=== PATIENT | female | born 1990 | race Caucasian/White ===

== ENCOUNTER 2020-08-07 08:17 | Emergency (ER) | payer OTHER, SELFPAY ==
[2020-08-07 08:25] VITALS: BP 139/83; PULSE 87; RESP 16; TEMP 36.8; O2SAT 98
--- NOTE | 2020-08-07 08:58 | ED.URI ---
HPI - URI/Sore Throat General Stated Complaint: congestion in head and ear Time Seen by Provider: 08/07/20 08:58 Source: patient Mode of arrival: ambulatory Limitations: no limitations History of Present Illness HPI Narrative: Patient presents with a 2-week history of sinus infection and pressure. Patient complains of a headache. Patient denies any loss of taste or smell patient denies any body aches and denies any increase in fatigue. Patient states she was tested for COVID-19 yesterday at [facility]. Patient states they did a rapid COVID-19 test which was negative and also did a backup COVID-19 test and has not heard results from that yet discussed with patient to continue quarantine at home until she receives a negative COVID-19 test. Patient denies any shortness of breath and no chest pain. Patient does not take anything [id number] other than Claritin for her symptoms. Related Data Home Medications Medication Instructions Recorded Confirmed linaclotide [Linzess] 145 mcg PO DAILY 08/07/20 08/07/20 Allergies Allergy/AdvReac Type Severity Reaction Status Date / Time No Known Allergies Allergy Verified 08/07/20 08:48 Review of Systems Review of Systems: Narrative: CONSTITUTIONAL: Denies chills, or sweats. Reports fever and generalized body aches EYES: Denies visual changes, redness, or discharge. ENT: Denies otalgia. Reports nasal congestion runny nose and sore throat CARDIOVASCULAR: Denies chest pain, palpitations, or edema. RESPIRATORY: Denies dyspnea. Reports occasional cough GASTROINTESTINAL: Denies abdominal pain, nausea, vomiting, or diarrhea. GENITOURINARY: Denies dysuria or hematuria. SKIN: Denies rash or itching. MUSCULOSKELETAL: Denies back pain, joint pain, or myalgia. Reports generalized body aches NEUROLOGIC: Denies headache, numbness, or weakness. PSYCHIATRIC: Denies anxiety or depression. PMFSH Comments At time of signature, agree with nursing past medical, surgical, social and family history. There is no relevant family history pertinent to the presenting complaint Exam Narrative: Exam Narrative: The patient is a well-developed, well-nourished in no acute distress. SKIN: Skin is warm and dry without erythema, swelling or exudate. There is good turgor. No tenting. HEAD: Atraumatic. Normocephalic. No temporal or scalp tenderness. EYES: Moist and bright. Sclera and conjunctivae normal. No discharge. PERRLA. Extraocular motions intact. Gross visual acuity intact. EARS: Pinna is normal shape and contour. Clear external auditory canals. TM pearly bunch with good cone of light, no erythema or suppuration. Bilateral cerumen noted no gross hearing deficit. Moderate amount of erythremia to right canal no loss of landmarks NOSE: pink, moist mucosa with good air movement. Clear rhinorrhea without nasal flaring. Septum midline. Moderate maxillary tenderness Mouth: moist mucous membranes. THROAT; mild erythema noted to posterior oropharynx with moderate postnasal drainage. Without exudate or ulceration.. Uvula midline. Normal movement of soft palate. NECK: Supple and nontender with full range of motion without discomfort. No meningeal signs. LUNGS: Equal and bilateral breath sounds without wheezes, rales or rhonchi. CHEST: The chest wall is without retractions or use of accessory muscles. HEART: Has a regular rate and rhythm without murmur, gallops, click or rub. ABDOMEN: Soft, nontender with positive active bowel sounds. No rebound tenderness. EXTREMITIES: Without cyanosis, clubbing or edema. Equal 2+ distal pulses and 2 second capillary refill noted. NEUROLOGIC: alert, active, . The patient moves all extremities with normal muscle strength. Normal muscle tone is noted. Normal coordination is noted. NO focal neurological findings noted. Course Vital Signs Vital signs: Vital Signs Temperature 36.8 C 08/07/20 08:25 Pulse Rate 87 08/07/20 08:25 Respiratory Rate 16 07/20
== END 2020-08-07 09:10 | disposition home or self-care (01) ==
PROVIDERS: Emergency Provider Nurse Practitioner Family
DX: J06.9 Acute upper respiratory infection, unspecified (principal); J32.9 Chronic sinusitis, unspecified
CPT/HCPCS: 99213; G0463

== ENCOUNTER → 2021-09-17 10:43 | Outpatient (CLI) | payer OTHER, SELFPAY ==
[2021-09-17 13:43] LABS: Influenza Control Positive
[2021-09-17 20:34] LABS: SARS-CoV-2 RNA PCR Positive
== END ==
PROVIDERS: PCP Family Medicine; Visit Provider Physician Assistant
DX: R50.9 Fever, unspecified (principal); U07.1 COVID-19
CPT/HCPCS: 87804; C9803; U0003; U0005

== ENCOUNTER 2022-09-29 08:50 | Outpatient (RCR) | payer OTHER, SELFPAY ==
[2022-09-29] MEDS: RHO(D) IMMUNE GLOBULIN 300 MCG/2 ML SYRINGE IM (14:15)
== END 2022-12-28 23:59 | disposition home or self-care (01) ==
LOC: ANHLAB 08:50
PROVIDERS: PCP Family Medicine; Visit Provider Advanced Practice Midwife
DX: Z29.13 Encounter for prophylactic Rho(D) immune globulin (principal); O36.0130 Maternal care for anti-D [Rh] antibodies, third trimester, not applicable or unspecified; Z3A.00 Weeks of gestation of pregnancy not specified
CPT/HCPCS: 36415; 85461; 86850; 86900; 86901; 90384; 96372; J2790

== ENCOUNTER 2022-12-14 07:44 | Inpatient (IN) | payer OTHER, SELFPAY ==
[2022-12-14] VITALS (11 sets, daily range): BP systolic 117–136; BP diastolic 65–84; PULSE 58–76; RESP 16–18; TEMP 36.4–37.3; O2SAT 99–100; BMI 25.9
[2022-12-14] MEDS: OXYTOCIN 30 UNITS/NS 500 ML 30 UNITS/500 ML BAG 999 UNITS IV CONT (08:26)
--- NOTE | 2022-12-14 08:33 | WPDOBADMIT ---
Obstetrics - Admit Note Admission Note: 32 y/o here in spontaneous labor. record reviewed. No pertinent additions to the history and/or any subsequent changes in the physical findings that are not consistent with the expected course of the were found. Additions to the history and/or subsequent changes in the physical findings follow. None.
--- NOTE | 2022-12-14 08:34 | PM.OBPRVD ---
OB - Delivery Note Procedure Delivery date: 12/14/22 Induction method: None Delivery monitor: External FHT and External Uterine Route of delivery: Episiotomy description: None Laceration Description: None Quantitative Blood Loss (ml): 212 Anesthesia type: None Baby Date of : 12/14/22 Time of : 08:18 Weeks of gestation at delivery: 39 presentation: vertex position: Left Occiput Anterior Placenta delivery description: Spontaneous Cord Vessel Description: 3 Vessels and Delayed Cord Clamping
[2022-12-14 08:52] LABS: Basophils Absolute Auto 0.1 K/mm3 (0.0-0.1); Basophils Percent Auto 0.7 % (0.2-1.2); Eosinophils Percent Auto 0.3 % (0-4.4); Hematocrit 39.8 % (37.0-47.0); Hemoglobin 13.7 g/dL (12.0-15.0); Immature Granulocyte Absolute 0.03 K/mm3 (0.00-0.031); Immature Granulocyte Percent A 0.3 % (0-0.5); Lymphocytes Absolute Auto 2.93 K/mm3 (0.9-3.2); Mean Corpuscular HGB Conc 34.4 g/dl (32-36); Mean Corpuscular Hemoglobin 30.2 pg (26-34); Mean Corpuscular Volume 87.9 fl (80-100); Mean Platelet Volume 11.3 fl (7.4-10.4); Monocytes Absolute Auto 0.7 K/mm3 (0.1-0.6); Monocytes Percent Auto 5.9 % (2.6-8.5); Neutrophils Percent Auto 67.8 % (45.5-73.1); Platelet Count Result 258 k/mm3 (150-375); Red Blood Count 4.53 M/mm3 (4.2-5.4); Red Cell Distribution Width 12.7 % (11.5-14.5); White Blood Count 11.7 K/mm3 (4.5-10.0)
[2022-12-14] MEDS: IBUPROFEN 600 MG TABLET PO (08:52)
[2022-12-14] MEDS: OXYTOCIN 30 UNITS/NS 500 ML 30 UNITS/500 ML BAG 125 UNITS IV CONT (08:55)
--- NOTE | 2022-12-14 10:10 | LDADM ---
This patient, Cheri Golden, was admitted to Labor/Delivery/Recovery 105 on 12/14/22 at 07:44. Plans for labor, pain management and were discussed with patient. Patient/family oriented to hospital policies and general routines including ID bracelet, bed and alarms, visiting hours, pain management, procedures, bathroom and other care routines, personal items, smoking policy, room service/diet and guest tray routines, security routines, and visiting hours. Patient/Family are encouraged to report perceived risks to care and to ask questions if they do not understand what they are told or what they should do. See OBIX for further documentation.
--- NOTE | 2022-12-14 10:47 | OBPPTRN ---
Patient transferred to post room # 283 via wheelchair. Support person present. Oriented to unit, room, information board, rooming in, admission packet and security measures. Patient verbalizes understanding.
[2022-12-14 13:28] LABS: Rapid Plasma Reagin Non-Reactive (NonReactive)
--- NOTE | 2022-12-14 15:46 | PC.NURSE ---
[id number] Introductions were made, then consulted with patient to assess needs related to . Mother led the conversation with her?plans to feed?her , the?experience so far and her history with her other children. Resources provided for inpatient and outpatient services with the feeding sheet, mom/baby guide, business card and name written on the white board. Mother voiced understanding of information and consented to reviewing what to expect the first 24-48 hours. Mother works well with her infant with encouragement and education. Encouraged understanding of the benefits of skin to skin (demonstrating unwrapping infant and placing upright on her chest), stimulating with massage touch, changing positions to encourage wakefulness, how to watch for early feeding cues,hand expression, responsive feeding, feeding on demand (aiming for 8-12 times in 24 hours, about every 2-3 hours), milk production, building/maintaining a milk supply, duration of feeding, signs of adequate intake/output and how to record on the feeding sheet. Reviewed positioning and ear, shoulder, hip alignment, supporting the breast with the sandwich hold to facilitate a deep latch, asymmetrical latch (off-center), leading with the chin with a big, open, wide gape and body close to mother. Nipple care reviewed with optimal latch and good positioning. Reminding mother of comfort measures of healing with a warm and wet washcloth to rinse breast, then leave open to air-dry as needed. Reviewed good handwashing when or touching the breast/nipples to prevent infection. Resources used to facilitate learning were used with the visual handouts, QR codes, tool, mom and baby guide. Mother voiced understanding of skin to skin, stimulating with massage touch, responsive feedings, hand expressed colostrum, talking to infant to encourage if it has been 2 -2.5 hours since the start of the last , to call if infant does not latch, or if there is discomfort with . Parents voiced understanding of information, demonstrated learning and will call if there is a request for assistance. Reported to the primary RN. [id number] remains skin to skin with no feeding cues visualized. is sleepy and reluctant. Mother voiced understanding to detach if there is pain with , calling for assistance with latch, waking infant to breastfeed or any concerns. Reported to the Primary RN.
[2022-12-15 04:40] VITALS: BP 117/81; PULSE 72; RESP 18; TEMP 36.7; O2SAT 99
[2022-12-15] MEDS: IBUPROFEN 600 MG TABLET PO (04:49)
[2022-12-15 06:19] LABS: Hematocrit 35.3 % (37.0-47.0)
[2022-12-15 07:20] VITALS: BP 128/72; PULSE 61; RESP 16; TEMP 36.1; O2SAT 100
--- NOTE | 2022-12-15 07:57 | PM.OBPNVD ---
OB - PN: Subj Subjective Date/time seen: 12/15/22 07:57 s/p vaginal delivery day 1 OB - PN: Obj Data Labs 12/15/22 04:58 Labs: Laboratory Results - last 24 hr 12/14/22 12/14/22 12/14/22 08:14 08:14 08:14 WBC 11.7 H RBC 4.53 Hgb 13.7 Hct 39.8 MCV 87.9 MCH 30.2 MCHC 34.4 RDW 12.7 Plt Count 258 MPV 11.3 H Immature Gran % (Auto) 0.3 Neut % (Auto) 67.8 Lymph % (Auto) 25.0 Granite % (Auto) 5.9 Eos % (Auto) 0.3 Baso % (Auto) 0.7 Lymph # (Auto) 2.93 Granite # (Auto) 0.7 H Eos # (Auto) 0.0 Baso # (Auto) 0.1 Abs Immat Gran (auto) 0.03 Absolute Neuts (auto) 8.0 H Absolute Nucleated RBC 0.0 Nucleated RBC % 0.0 RPR Non-reactive Blood Type O Negative Antibody Screen Positive Antibody Identification Passive Due to RH Imm Glob Antigen Identification Not Reportable PIA, IgG Interpret Not Performed PIA, Poly Interpret Negative PIA, Complement Interp Not Performed 12/15/22 04:58 WBC RBC Hgb 12.0 Hct 35.3 L MCV MCH MCHC RDW Plt Count MPV Immature Gran % (Auto) Neut % (Auto) Lymph % (Auto) Granite % (Auto) Eos % (Auto) Baso % (Auto) Lymph # (Auto) Granite # (Auto) Eos # (Auto) Baso # (Auto) Abs Immat Gran (auto) Absolute Neuts (auto) Absolute Nucleated RBC Nucleated RBC % RPR Blood Type Antibody Screen Antibody Identification Antigen Identification PIA, IgG Interpret PIA, Poly Interpret PIA, Complement Interp OB - PN A/P Plan day: 1 Plan: routine care and discharge home Time Spent With Patient Time: Total time spent is greater than 50% in coordination of care (as documented) at patient's floor/unit and/or counseling patient: Review of Systems Review of Systems: All systems reviewed & are unremarkable except as noted in HPI and below Exam Const: General: cooperative, healthy appearing and comfortable
--- NOTE | 2022-12-15 07:58 | P.DS_ITS ---
DS: Admitting Diagnosis Discharge Date 12/15/22 Admitting Diagnosis labor DS: Discharge Diagnosis Discharge Diagnosis (1) Vaginal delivery: Code(s): O80 - Encounter for full-term uncomplicated delivery Status: Acute OB - DS: Summary OB Procedures : None OB Procedures Intrapartum: Spontaneous Vag Delivery OB Procedures: : None Time Spent with Patient Time attestation: Total time spent providing and/or coordinating discharge services: DS: Data Data Completed and Pending Labs on day of discharge: Labs from last 24 hours 12/15/22 12/14/22 12/14/22 04:58 08:14 08:14 WBC RBC Hgb 12.0 Hct 35.3 L MCV MCH MCHC RDW Plt Count MPV Immature Gran % (Auto) Neut % (Auto) Lymph % (Auto) Perkins % (Auto) Eos % (Auto) Baso % (Auto) Lymph # (Auto) Perkins # (Auto) Eos # (Auto) Baso # (Auto) Abs Immat Gran (auto) Absolute Neuts (auto) Absolute Nucleated RBC Nucleated RBC % RPR Non-reactive Blood Type O Negative Antibody Screen Positive Antibody Identification Passive Due to RH Imm Glob Antigen Identification Not Reportable PIA, IgG Interpret Not Performed PIA, Poly Interpret Negative PIA, Complement Interp Not Performed 12/14/22 08:14 WBC 11.7 H RBC 4.53 Hgb 13.7 Hct 39.8 MCV 87.9 MCH 30.2 MCHC 34.4 RDW 12.7 Plt Count 258 MPV 11.3 H Immature Gran % (Auto) 0.3 Neut % (Auto) 67.8 Lymph % (Auto) 25.0 Perkins % (Auto) 5.9 Eos % (Auto) 0.3 Baso % (Auto) 0.7 Lymph # (Auto) 2.93 Perkins # (Auto) 0.7 H Eos # (Auto) 0.0 Baso # (Auto) 0.1 Abs Immat Gran (auto) 0.03 Absolute Neuts (auto) 8.0 H Absolute Nucleated RBC 0.0 Nucleated RBC % 0.0 RPR Blood Type Antibody Screen Antibody Identification Antigen Identification PIA, IgG Interpret PIA, Poly Interpret PIA, Complement Interp Discharge Plan Discharge Attending physician on discharge: Deonna Nelson Discharging Clinician: Cheri Lang Patient Disposition: Home, Self-Care Activity: pelvic rest Diet: regular Patient Instructions: Antibiotic Form Stand Alone Forms: General Discharge Information Follow-up/Referrals: Marya Paulino CNM [Certified Nurse Blasting Machine Operator] - Discharge Medications: New ibuprofen 600 mg Tablet 600 mg PO Q6H PRN (Reason: Cramping) Qty: 30 0RF Continued oljfapiyiauc-Dd-aaqu-minerals 18-0.4 mg tablet 1 tablet PO DAILY Discontinued aspirin [Baby Aspirin] 81 mg Tablet,Chewable 81 mg PO DAILY Date of admission: 12/14/22 07:44 Primary Care Provider: Dianna Wright Admitting Provider: Deonna Nelson Attending physician on admission: Deonna Nelson Condition: Stable
[2022-12-15 08:00] VITALS: PULSE 61; RESP 16; O2SAT 100
[2022-12-15] MEDS: THERAPEUTIC MULTIVITAMINS/MINERALS TAB (*BKC) 1 TABLET PO (09:16)
--- NOTE | 2022-12-15 09:50 | PC.NURSE ---
On 12/15/22, the student, Gila Cooley, provided care and completed [facility] documentation on this patient. I have reviewed the student's documentation and agree with the findings.
--- NOTE | 2022-12-15 10:12 | PC.NURSE ---
Patient was given the opportunity to view the discharge video Mother & Baby Care, The First Two Weeks and to ask questions. Patient declined viewing the video and has been given the mother/baby guide for home reference.
--- NOTE | 2022-12-15 10:53 | PC.NURSE ---
[id number] Mother led the conversation with her experience and plan to feed her infant so far and her ability to independently latch optimally without discomfort. Mother is feeding appropriately for growth of and understands stimulating to eat if needed. Infant has had appropriate feedings in the last 24 hours meets the outcomes for weight, output and jaundice at this time. Mother states she is confident to continue effectively breastfeed her infant at home, when to call for assistance and denies any additional assistance or education at this time. Reinforced understanding of milk production, transition of milk, signs of adequate intake, transition of stool, prevention/relief of engorgement, responsive watching for feeding cues, the different methods of stimulating infant to breastfeed 2-3 hours after the start of the last feeding, and when to call a provider using the resource of the mom and baby guide. Mother voiced understanding of the education shared. Reported to the primary RN.
[2022-12-16 10:19] VITALS: BP 122/78; PULSE 65; RESP 18; TEMP 37.4; O2SAT 98
== END 2022-12-15 11:10 | disposition home or self-care (01) | DRG 807 ==
LOC: ANHLDR 07:50 → ANHOB2 10:48
PROVIDERS: Advanced Practice Midwife; Admitting Provider Obstetrics & Gynecology; PCP Family Medicine; Visit Provider Obstetrics & Gynecology
DX: O13.4 Gestational [pregnancy-induced] hypertension without significant proteinuria, complicating childbirth (principal); Z37.0 Single live birth; Z3A.39 39 weeks gestation of pregnancy
CPT/HCPCS: 36415; 85014; 85018; 85025; 86592; 86850; 86880; 86900; 86901; 86902; A9270; J2590